=== PATIENT | male | born 1970 | race Caucasian/White ===

== ENCOUNTER 2017-03-21 04:24 | Emergency (ER) | payer SELFPAY ==
[~2017-03-21] VITALS: Ht 175.3 cm; Wt 77.1 kg
[2017-03-21] MEDS ORDERED: RX-TOBRAMYCIN 0.3% OPHTH (TOBREX) SOLN 5 ML BTL OP STA (04:43)
[2017-03-21] MEDS ORDERED: TETRACAINE 0.5% OPHTH SOLN 4 ML BTL (SINGLE DOSE ONLY) OP ONE (04:45)
[2017-03-21] MEDS ORDERED: FLUORESCEIN (FLUOR-I-STRIPS) 1 MG STRP OU ONE (04:45)
--- NOTE | 2017-03-21 04:51 | ED EENT ---
History of Present Illness General Chief Complaint: Eye Problems Stated Complaint: OBJECT STUCK IN EYE Source: patient Exam Limitations: no limitations History of Present Illness Time seen by provider: 04:25 Initial Comments Here with report of right eye pain after trying to get a contact out of his eye. He states that he put the contact in and it hurt quite a bit so he was working to try to get it out. He thinks it still stuck in his eyes somewhere. Treatment he stopped trying to get the contact out when he noticed that his eye was bleeding. He then came to the ER. He admits to drinking quite a bit tonight. Tetanus is not up-to-date. Timing/Duration: abrupt Severity: moderate Location: eye (R) Associated Symptoms: No fever Allergies and Home Medications Allergies Coded Allergies: No Known Drug Allergies (Unverified , 03/21/17) Review of Systems Constitutional: see HPI, No chills, No fever Eyes: See HPI, Foreign Body Sensation, Inflammation, Pain, Photophobia Nose: no symptoms reported Mouth: no symptoms reported Respiratory: no symptoms reported Cardiovascular: no symptoms reported Neurological: No Symptoms Reported Past Bhewljk-Zjmhqm-Ymbpnf Hx Patient Social History Alcohol Use: Occasionally Uses Recreational Drug Use: No Smoking Status: Current Everyday Smoker Type Used: Cigarettes 2nd Hand Smoke Exposure: Yes Recent Foreign Travel: No Contact w/Someone Who Travel: No Recent Hopitalizations: No Surgeries HX Surgeries: No Respiratory Hx Respiratory Disorders: No Cardiovascular Hx Cardiac Disorders: No Neurological Hx Neurological Disorders: Yes Neurological Disorders: Stroke Musculoskeletal Hx Musculoskeletal Disorders: Yes Psychosocial Behavioral Health Disorders: Depression Reviewed Nursing Assessment Reviewed/Agree w Nursing PMH: Yes Family Medical History Significant Family History: No Pertinent Family Hx Physical Exam Vital Signs Vital Sign - Last 12Hours 03/21/17 04:29 Temp 97.9 Pulse 74 Resp 18 B/P (MAP) 122/82 Pulse Ox 95 O2 Delivery Room Air General Appearance: WD/WN, mild distress Eyes: right eye conjunctival hemorrhage, right eye conjunctival inflammation, right eye corneal abrasion, right eye other (Rose Mary abrasion to the upper lateral aspect of the cornea. Moderate conjunctival erythema and injection.) Cardiovascular: regular rate, rhythm, no murmur Respiratory: lungs clear, normal breath sounds Neurologic/Psychiatric: alert, oriented x 3 Skin: normal color, warm/dry Progress/Results/Core Measures Results/Orders My Orders Orders - RADHA CHANCE MD Fluorescein Strips ([id number]) (03/21/17 04:45) Rx-Tobramycin Ophth Drops (Rx-Tobrex 0.3 (03/21/17 04:43) Tetracaine 0.5% Ophth Bel Sdv (Tetracai (03/21/17 04:45) Medications Given in ED Current Medications Medications Dose Ordered Sig/Gabby Route Start Time Stop Time Status Last Admin Dose Admin Fluorescein Sodium 1 mg ONCE ONCE OU 03/21/17 04:45 03/21/17 04:46 DC 03/21/17 04:54 1 MG Tetracaine HCl 1 OR 2 DROPS INTO AFFEC... ONCE ONCE OP 03/21/17 04:45 03/21/17 04:46 DC 03/21/17 04:54 4 ML Vital Signs/I&O Vital Sign - Last 12Hours 03/21/17 04:29 Temp 97.9 Pulse 74 Resp 18 B/P (MAP) 122/82 Pulse Ox 95 O2 Delivery Room Air Progress Note : Progress Note Seen and evaluated. Tetracaine drops instilled to the right eye. This did resolve his pain. Fluorescein stain done and noted corneal abrasion. Moderate uptake noted and the surrounding tissues of the conjunctiva. No foreign body noted. Tobramycin eyedrops initiated. Discharged home with return precautions. Patient verbalize understanding instructions and agreement with plan. Departure Impression Impression: Primary Impression: Corneal abrasion Qualified Codes: S05.01XA - Injury of conjunctiva and corneal abrasion without foreign body, right eye, initial encounter Additional Impression: Conjunctivitis Qualified Codes: H10.31 - Unspecified acute conjunctivitis, right eye Disposition: HOME, SELF-CARE Condition: Improved Departure-Patient Inst. Decision time for Depature: 05:05 Referrals: JONAS TITUS OD NO,LOCAL PHYSICIAN (PCP) Primary Care Physician Patient Instructions: Corneal Abrasion (DC) Add. Discharge Instructions: All discharge instructions reviewed with patient and/or family. Voiced understanding. You should use eyedrops 2 drops to the affected eye every 4 hours while awake. He may take ibuprofen 800 mg every 8 hours as needed for pain. You may take Tylenol 1000 mg every 8 hours as needed for pain. Follow-up with your eye doctor on Wednesday or the eye doctor listed. Return for worse pain, swelling, vision problems, fever or other concerns as needed. You opted not to have your tetanus updated. You should discuss this with your doctor and update your tetanus immunization. RADHA CHANCE MD Mar 21, 2017 04:51
[2017-03-21 05:12] VITALS: BP 0/0
--- OUTSIDE RECORDS SUMMARY | 2017-03-24 12:55 | XMS REPORT ---
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 Info Not Available Non Drug Allergy Problems Problem Type Condition Code Onset Dates Condition Status Assessment Dental examination Z01.20 Active Problem Dental examination Z01.20 Active Medications Medication Code System Code Instructions Start Date End Date Status Dosage Paxil [facility] [id number] 40 mg Oct 07, 2012 take 1 tablet (40 mg) by oral route once daily Procedures Procedure Coding System Code Date INTRAORL-PERIAPICAL 1 FILM 98042 CPT-4 D0220 May 15, 2016 INTRAORL-PERIAPICAL EA ADD FILM CPT-4 D0230 May 15, 2016 PERIODIC ORAL EXAMINATION CPT-4 D0120 May 15, 2016 BITEWINGS - FOUR FILMS CPT-4 D0274 May 15, 2016 INTRAORL-PERIAPICAL EA ADD FILM CPT-4 D0230 May 15, 2016 Vital Signs Date/Time: May 15, 2016 Blood Pressure Diastolic 103 mmHg Blood Pressure Systolic 144 mmHg Results No Known Results Summary Purpose eClinicalWorks Submission
--- OUTSIDE RECORDS SUMMARY | 2017-03-24 12:55 | XMS REPORT ---
Author Author SHELLEY MICHEL 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
== END 2017-03-21 05:12 | disposition home or self-care (01) ==
LOC: EDUNIT# 04:24 → ER 04:27
DX: S05.01XA Injury of conjunctiva and corneal abrasion without foreign body, right eye, initial encounter (principal); H10.9 Unspecified conjunctivitis; F32.9 Major depressive disorder, single episode, unspecified; F17.210 Nicotine dependence, cigarettes, uncomplicated; Z86.73 Personal history of transient ischemic attack (TIA), and cerebral infarction without residual deficits; X58.XXXA Exposure to other specified factors, initial encounter
CPT/HCPCS: 99282